=== PATIENT | male | born 1955 | race Caucasian/White ===

== ENCOUNTER 2025-02-07 09:22 | Emergency (ER) | payer MEDICARE ==
[2025-02-07] MEDS: Nitroglycerin 0.4 MG Tab.SL SL PRN (09:41)
[2025-02-07] MEDS: Aspirin 81 MG Tab.Chew PO ONE (09:48)
[2025-02-07] MEDS ORDERED: Sodium Chloride 0.9% 10 ML Syringe FLUSH PRN (09:49)
[2025-02-07] MEDS: Sodium Chloride 0.9% 1,000 ML IV SCH (09:57)
[2025-02-07 10:23] LABS: BASOPHILS ABSOLUTE AUTO 0.03 K/uL (0.02-0.10); BASOPHILS PERCENT AUTO 0.4 % (0.0-0.5); EOSINOPHILS ABSOLUTE AUTO 0.06 K/uL (0.04-0.40); EOSINOPHILS PERCENT AUTO 0.8 % (1.0-5.0); HEMATOCRIT 42.6 % (40.0-54.0); HEMOGLOBIN 14.5 g/dL (13.0-18.0); LYMPHOCYTES ABSOLUTE AUTO 1.13 K/uL (1.50-4.00); LYMPHOCYTES PERCENT AUTO 15.2 % (20.0-40.0); MEAN CORPUSCULAR HEMOGLOBIN 30.9 pg (27.0-32.0); MEAN CORPUSCULAR VOLUME 91 fL (76-96); MEAN PLATELET VOLUME 10.2 fL (6.0-10.0); MONOCYTES PERCENT AUTO 13.4 % (3.0-10.0); NEUTROPHILS ABSOLUTE AUTO 5.23 K/uL (2.00-7.50); NEUTROPHILS PERCENT AUTO 70.2 % (45.0-70.0); PLATELET COUNT,PLT 203 K/uL (150-400); RED BLOOD CELL COUNT 4.69 M/uL (4.50-6.50); RED CELL DISTRIBUTION WIDTH 13.3 % (11.0-16.0); WHITE BLOOD CELL COUNT,WBC 7.5 K/uL (4.0-11.0)
[2025-02-07] MEDS: Furosemide 20 MG/2 ML VIAL IVPUSH ONE (10:54)
[2025-02-07 10:58] LABS: PTT,PARTIAL THROMBOPLSTIN TIME 28.1 SECONDS (24.4-33.2)
[2025-02-07 11:00] LABS: PROTHROMBIN TIME 10.3 sec (9.0-11.5)
[2025-02-07 11:05] LABS: A/G RATIO 1.1 (0.8-2.0); ALBUMIN 3.6 g/dL (3.4-5.0); ANION GAP 13.1 mmol/L (5.0-15.0); BILIRUBIN TOTAL 0.9 mg/dL (0.0-1.0); BUN/CREATININE RATIO 13.3 (6-25); CALCIUM 8.8 mg/dL (8.5-10.1); CARBON DIOXIDE,CO2 28.4 mmol/L (21.0-32.0); CREATININE 0.98 mg/dL (0.70-1.30); EST CRCL DRUG DOSING (CG) 67.45 mL/min; MAGNESIUM 2.3 mg/dL (1.8-2.4); POTASSIUM,K 3.5 mmol/L (3.5-5.1); PROTEIN TOTAL,TP 6.9 g/dL (6.4-8.2)
[2025-02-07] MEDS: Isosorbide Mononitrate 30 MG Tab.ER PO ONE (11:13)
[2025-02-07 12:34] VITALS: BP 103/67; PULSE 92
== END 2025-02-07 12:10 | disposition home or self-care (01) ==
LOC: LB.ED 09:22
DX: I20.1 Angina pectoris with documented spasm (principal); I50.9 Heart failure, unspecified; Z79.899 Other long term (current) drug therapy
CPT/HCPCS: 36415; 71045; 80053; 83735; 83880; 84484; 85025; 85379; 85610; 85730; 93005; 96360; 99285; A9270; J7030; 93010; 99284